=== PATIENT | male | born 1980 | race Hispanic/Latino ===

== ENCOUNTER 2018-11-11 22:07 | Emergency (ER) | payer BC ==
[~2018-11-11] VITALS: Ht 170.2 cm; Wt 68.0 kg
[2018-11-11] MEDS ORDERED: SODIUM CHLORIDE 0.9% 1000ML 1,000 ML ONE ×2 (22:24→23:10)
[2018-11-11] MEDS ORDERED: ONDANSETRON HCL INJ 2MG/ML 2ML 2 MG/ML VIAL ONE (22:24)
[2018-11-11] MEDS: MORPHINE SULFATE INJ 4 MG/ML INJ 1ML IV PRN ×2 (22:25→23:10)
[2018-11-11] MEDS ORDERED: ONDANSETRON HCL INJ 2MG/ML 2ML 2 MG/ML VIAL IV STA (22:27)
[2018-11-11] MEDS ORDERED: SODIUM CHLORIDE 0.9% 1000ML 1,000 ML IV SCH ×2 (22:30→23:30)
[2018-11-11] MEDS ORDERED: MORPHINE SULFATE INJ 4 MG/ML INJ 1ML ONE ×2 (22:30→23:09)
[2018-11-11] MEDS ORDERED: SODIUM CHLORIDE 0.9% 50ML 50 ML ONE (22:59)
[2018-11-11] MEDS ORDERED: IOPAMIDOL 370 MG/ML 200 ML INFUS..BTL INJ ONE (23:00)
--- NOTE | 2018-11-11 23:52 | Diagnostic Imaging Report ---
EXAM: CT Abdomen and Pelvis WITH contrast INDICATION: Abdominal pain, nausea and vomiting. COMPARISON: None. TECHNIQUE: Abdomen and pelvis were scanned utilizing a multidetector helical scanner from the lung base to the pubic symphysis after administration of IV contrast. Coronal and sagittal reformations were obtained. Routine protocol was performed. Scan was performed when during portal venous phase. IV CONTRAST: 100 cc Isovue 300 ORAL CONTRAST: Water RADIATION DOSE: Total DLP: 462.60 mGy*cm Estimated effective dose: (DLP x 0.015 x size factor) mSv COMPLICATIONS: None FINDINGS: LINES and TUBES: None. LOWER THORAX: 1.0 cm noncalcified nodule in the lingula on image 4 series HEPATOBILIARY: No focal hepatic lesions. Minimal central intrahepatic biliary dilatation, likely reservoir effect.. GALLBLADDER: There are cholecystectomy clips. SPLEEN: No splenomegaly. PANCREAS: No focal masses or ductal dilatation. ADRENALS: No adrenal nodules KIDNEYS/URETERS: Kidneys enhance symmetrically. No hydronephrosis. No cystic or solid mass lesions. No stones. GI TRACT: No abnormal distention, wall thickening, or evidence of bowel obstruction. Appendix is normal. PELVIC ORGANS/BLADDER: Unremarkable. LYMPH NODES: No lymphadenopathy. VESSELS: Unremarkable. PERITONEUM / RETROPERITONEUM: No free air or fluid. BONES: Unremarkable. SOFT TISSUES: Unremarkable. IMPRESSION: 1. No acute abdominal pelvic abnormality. 2. Incidentally noted 1.0 cm noncalcified nodule in the lingula. Consider further evaluation nonemergent dedicated CT chest. Alternatively, CT chest nodule protocol could be performed as a follow-up exam in 3 months. Signed by: Dr. Lisandro Rojas M.D. on 11/11/2018 11:49 PM
[2018-11-12] MEDS ORDERED: PANTOPRAZOLE 40 MG 10ML VIAL IV STA (00:01)
[2018-11-12] MEDS ORDERED: LIDOCAINE VISC 2% SOLN 15 ML UDC ONE (00:03)
[2018-11-12] MEDS ORDERED: MAGNESIUM/ALUMINUM/SIMETHICONE 30 ML UDC ONE (00:04)
[2018-11-12] MEDS ORDERED: BELLADONNA ALK/PHENOBARBITAL 5 ML UDC ONE (00:04)
[2018-11-12] MEDS ORDERED: PANTOPRAZOLE 40 MG 10ML VIAL ONE (00:04)
[2018-11-12] MEDS ORDERED: LIDOCAINE VISC 2% SOLN 15 ML UDC PO ONE (00:15)
[2018-11-12] MEDS ORDERED: MAGNESIUM/ALUMINUM/SIMETHICONE 30 ML UDC PO ONE (00:15)
[2018-11-12] MEDS ORDERED: BELLADONNA ALK/PHENOBARBITAL 5 ML UDC PO ONE (00:15)
[2018-11-12 00:19] VITALS: BP 165/82
[2018-11-16] MEDS ORDERED: MULTIVITAMINS1 EAC7 PO (16:35)
== END 2018-11-12 00:30 | disposition home or self-care (01) ==
LOC: FSED 22:07
DX: K29.00 Acute gastritis without bleeding (principal)
CPT/HCPCS: 74177; 96374; 96375; 99283; C9113; J2270; J2405; J7030; Q9967

== ENCOUNTER → 2018-11-17 | Day surgery (SDC) | payer BC ==
[~2018-11-17] MED LIST: FENTANYL CITRATE/PF 100MCG/2 ML INJ ONE; LIDOCAINE HCL 2% LOCAL INJ 5 ML SDV VIAL INJ ONE; MIDAZOLAM HCL 2 MG/2 ML VIAL ONE; MULTIVITAMINS1 EAC7 PO; PROPOFOL IV EMULSION 10 MG/ML 50 ML VIAL ONE
--- OUTSIDE RECORDS SUMMARY | 2018-11-17 13:31 | XMS REPORT ---
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 Allergies, Adverse Reactions, Alerts This patient has no known allergies or adverse reactions. Medications This patient has no known medications. Results Test Description Test Time Test Comments Text Results Atomic Results Result Comments CT ABD/PEL WITH CONTRAST-HOPD 2018-11-11 23:34:00 [place] [id number] Patient Name: HERNAN BUTLER MR #: [id number] : 1980 Age/Sex: 38/M Req #: [id number] Adm Physician: Ordered by: HIREN MAURICIO MD Report #: [id number] Location: [facility] Room/Bed: Procedure: [id number] HOPD/CT ABD/PEL WITH CONTRAST-HOPD Exam Date: 11/11/18 Exam Time: 2318 REPORT STATUS: Signed EXAM: CT Abdomen and Pelvis WITH contrast INDICATION: Abdominal pain, nausea and vomiting. COMPARISON: None. TECHNIQUE: Abdomen and pelvis were scanned utilizing a multidetector helical scanner from the lung base to the pubic symphysis after administration of IV contrast. Coronal and sagittal reformations were obtained. Routine protocol was performed. Scan was performed when during portal venous phase. IV CONTRAST: 100 cc Isovue 300 ORAL CONTRAST: Water RADIATION DOSE: Total DLP: 462.60 mGy*cm Estimated effective dose: (DLP x 0.015 x size factor) mSv COMPLICATIONS: None FINDINGS: LINES and TUBES: None. LOWER THORAX: 1.0 cm noncalcified nodule in the lingula on image 4 series HEPATOBILIARY: No focal hepatic lesions. Minimal central intrahepatic biliary dilatation, likely reservoir effect.. GALLBLADDER: There are cholecystectomy clips. SPLEEN: No splenomegaly. PANCREAS: No focal masses or ductal dilatation. ADRENALS: No adrenal nodules KIDNEYS/URETERS: Kidneys enhance symmetrically. No hydronephrosis. No cystic or solid mass lesions. No stones. GI TRACT: No abnormal distention, wall thickening, or evidence of bowel obstruction. Appendix is normal. PELVIC ORGANS/BLADDER: Unremarkable. LYMPH NODES: No lymphadenopathy. VESSELS: Unremarkable. PERITONEUM / RETROPERITONEUM: No free air or fluid. BONES: Unremarkable. SOFT TISSUES: Unremarkable. IMPRESSION: 1. No acute abdominal pelvic abnormality. 2. Incidentally noted 1.0 cm noncalcified nodule in the lingula. Consider further evaluation nonemergent dedicated CT chest. Alternatively, CT chest nodule protocol could be performed as a follow-up exam in 3 months. Signed by: Dr. Lisandro Hills M.D. on 11/11/2018 11:49 PM Dictated By: LELO HILLS MD, MD 48 Transcribed By: DARRELL on 11/11/182348 COPY TO: HIREN MAURICIO MD
[2018-11-17 15:55] VITALS: BP 105/66
== END | disposition home or self-care (01) ==
LOC: OR 13:30
PROVIDERS: ATTEND Internal Medicine Gastroenterology
DX: K29.00 Acute gastritis without bleeding (principal); K29.50 Unspecified chronic gastritis without bleeding; K20.9 Esophagitis, unspecified; B96.81 Helicobacter pylori [H. pylori] as the cause of diseases classified elsewhere; R03.0 Elevated blood-pressure reading, without diagnosis of hypertension; R91.1 Solitary pulmonary nodule; F41.9 Anxiety disorder, unspecified; Z80.0 Family history of malignant neoplasm of digestive organs
CPT/HCPCS: 43239; J2001; J2250; J2704; J3010